=== PATIENT | male | born 2000 | race Two or more races ===

== ENCOUNTER 2021-11-26 14:01 | Outpatient (REF) | payer BC, SELFPAY ==
--- NOTE | 2021-11-26 16:17 | PFT_ITS ---
FLOWS: FEV1 93% of predicted at 4.20 L. FVC 86% of predicted at 4.58 L. FEV1 to FVC ratio of 0.92. No bronchodilator response except in small to medium airways. LUNG VOLUMES: Total lung capacity 90% of predicted at 5.84 L. Residual volume 82% of predicted at 1.11 L. Slow vital capacity 93% of predicted at 4.73 L. Expiratory reserve volume 98% of predicted at 1.69 L. Diffusion capacity is normal. IMPRESSION: No obstructive or restrictive ventilatory defect. No bronchodilator response except in small to medium airways. Isreal Brown MD AP/MODL / [id number]
== END 2021-11-26 14:02 | disposition home or self-care (01) ==
LOC: HO.RESP 14:01
PROVIDERS: PCP Physician Assistant Medical; Visit Provider Hospitalist
DX: I97.0 Postcardiotomy syndrome (principal); U09.9 Post COVID-19 condition, unspecified
CPT/HCPCS: 94060; 94727; 94729